=== PATIENT | female | born 1975 ===

== ENCOUNTER 2017-09-07 13:21 | Inpatient (IN) | payer MEDICAID ==
[2017-09-07] MEDS ORDERED: Oxycodone/Acetaminophen 5/325 mg Tab PO PRN ×2 (20:21)
--- NOTE | 2017-09-07 20:25 | OBDS ---
MATERNAL INFORMATION Provider Comments: Normal spontaneous vaginal delivery. Patient delivered viable infant with Apgars of 9 and 9 at one and 5 minutes respectively. No lacer ations, perineum intact. Placenta delivered spontaneously. Uterus firm and appropriately hemostatic f ollowing delivery. Patient tolerated delivery well. No couple locations. Estimated blood loss 300 mL' s. LABOR SUMMARY EDC: 09/13/2017 00:00 LABOR INFORMATION Group B Beta Strep: unkown VAGINAL DELIVERY Episiotomy: None Laceration Extension: N/A Laceration Type: None Laceration Repair: Not Applicable
[2017-09-07] MEDS ORDERED: Lactated Ringer's 1,000 ML IV SCH ×2 (20:30)
[2017-09-07 21:49] LABS: BASO % 0.3 % (0.0-2.0); EOS # 0.1 K/uL (0.0-0.7); EOS % 0.5 % (0.0-4.0); HEMOGLOBIN 12.6 g/dL (12.0-16.0); LYMPH # 1.9 K/uL (1.0-4.3); LYMPH % 17.1 % (20.0-40.0); MEAN CELL VOLUME 89.5 fl (81.0-99.0); MEAN CORPUSCULAR HEMOGLOBIN 30.6 pg (27.0-31.0); MEAN CORPUSCULAR HGB CONC 34.2 g/dL (33.0-37.0); MEAN PLATELET VOLUME 9.7 fl (7.2-11.7); MONO # 0.6 K/uL (0.0-0.8); MONO % 5.5 % (0.0-10.0); NEUT # 8.3 K/uL (1.8-7.0); NEUT % 76.6 % (50.0-75.0); NRBC % 0.1 % (0.0-0.0); RBC 4.11 Mil/uL (3.80-5.20); RED CELL DISTRIBUTION WIDTH 15.4 % (11.5-14.5); WHITE BLOOD COUNT 10.9 K/uL (4.8-10.8)
[2017-09-08] MEDS ORDERED: Oxycodone/Acetaminophen 5/325 mg Tab PO PRN ×2 (00:02)
[2017-09-08 06:39] LABS: HEMOGLOBIN 11.1 g/dL (12.0-16.0); MEAN CELL VOLUME 88.2 fl (81.0-99.0); MEAN CORPUSCULAR HEMOGLOBIN 31.6 pg (27.0-31.0); MEAN CORPUSCULAR HGB CONC 35.9 g/dL (33.0-37.0); RBC 3.5 Mil/uL (3.80-5.20)
[2017-09-08] MEDS: Multivitamin With Minerals Tab PO SCH (08:59)
[2017-09-08] MEDS ORDERED: Multivitamin With Minerals Tab PO SCH (09:00)
[2017-09-09] MEDS: Multivitamin With Minerals Tab PO SCH (07:52)
--- NOTE | 2017-09-09 08:14 | OBPPN ---
Datetime: 09/09/2017 06:10 PP Pain Prov: Within normal limits PP Nausea Prov: Denies PP Flatus Prov: Yes PP BM Prov: Yes PP C/S Incision Prov: Not Applicable PP Progress Prov: Abnormal PP Impression Prov: Normal progression IP PP Procedures: None Vital Signs Provider PP: Reviewed; Within Normal Limits Vital Signs Provider Details PP: formula supplementation Datetime: 09/08/2017 05:57 PP Breasts Prov: Not Done PP Heart Prov: Normal PP Lungs Prov: Normal PP Abdomen/Uterus Prov: Normal PP Lochia Prov: Normal PP Vulva/Perineum Prov: Not Done PP CVA Tenderness Prov: Not Done PP Extremities Prov: Normal PP Plan Prov: Continue present management PP Progress Note Prov: Patient seen and examined this morning at bedside. Mild abdominal pain but we ll controlled with pain medicines. Voiding w/o any difficulties, tolerating PO intake and reports goo d progression with formula supplementation. No BM but passing gas per rectum. Denies ch est pain, dyspnea, nausea, vomiting, and calf pain. VSS, afebrile Gen: awake, no acute distress Resp: cta b/l CV: normal S1S2, RRR Abd: soft, +BS, nontender, firm fundus below umbilicus. Ext: no edema, no calf tenderness Neuro/psych: AAOx3, no gross deficits, preserved mood and affect A/P: 42 yo , s/p NVD doing well on PPD 1. -Normal progression -c/w pain management -Encourage ambulation and -Pp H/H pending -Anticipated discharge 09/09/17 -Requesting bring records from home. -Patient is aware and all the questions were answered [id number] The patient was seen with resident I agree with the note
[2017-09-09 23:10] VITALS: BP 114/60; PULSE 69; RESP 19; TEMP 97.8; O2SAT 99
== END 2017-09-09 15:00 | disposition home or self-care (01) | DRG 775 ==
LOC: H.EROB2 13:21 → H.NURSERY 20:19 → H.L&D 20:27 → H.OB/GYN 23:50
PROVIDERS: ADMIT Obstetrics & Gynecology; ATTEND Obstetrics & Gynecology
PROC: 10E0XZZ Delivery of Products of Conception, External Approach (ICD-10-PCS; principal; 2017-09-07)
PROC: 4A1HXCZ Monitoring of Products of Conception, Cardiac Rate, External Approach (ICD-10-PCS; 2017-09-07)
DX: O80 Encounter for full-term uncomplicated delivery (principal); Z3A.39 39 weeks gestation of pregnancy; Z37.0 Single live birth; O09.523 Supervision of elderly multigravida, third trimester